=== PATIENT | male | born 2000 | race African-American/Black ===

== ENCOUNTER 2021-03-17 05:23 | Emergency (ER) | payer SELFPAY ==
[~2021-03-17] VITALS: Ht 160 cm; Wt 65.8 kg
--- NOTE | 2021-03-17 05:48 | NUR ---
PATIENT BIBSELF C/O THROAT PAIN WHEN SWALLOWING THAT STARTED YESTERDAY IN THE AM.
[2021-03-17] MEDS ORDERED: KETOROLAC TROMETHAMINE INJ 30 MG/ML VIAL IM ONE (06:30)
[2021-03-17] MEDS ORDERED: AMOXICILLIN TRIHYDRATE 500 MG CAPSULE PO ONE (06:30)
[2021-03-17] MEDS ORDERED: DEXAMETHASONE SOD PHOSPHATE 4 MG/ML VIAL IM ONE (06:30)
[2021-03-17] MEDS ORDERED: KETOROLAC TROMETHAMINE 15 MG/ML VIAL ONE (06:46)
[2021-03-17] MEDS ORDERED: AMOXICILLIN TRIHYDRATE 250 MG CAPSULE ONE (06:46)
[2021-03-17] MEDS ORDERED: DEXAMETHASONE SOD PHOSPHATE 10 MG/ML VIAL ONE (06:46)
[2021-03-17] MEDS ORDERED: IV NS 0.9% 500 ML BAG IV ONE (08:00)
--- NOTE | 2021-03-17 08:00 | NUR ---
[facility] ESTABLISHED, BLOOD DRAWN AND PICKED UP BY LAB
[2021-03-17 08:23] LABS: CALCIUM, SERUM 8.9 mg/dL (8.5-10.1); POTASSIUM 4.3 mmol/L (3.5-5.1)
[2021-03-17 08:26] LABS: BASOPHILS % (AUTO) 0.3 % (0.0-2.0); EOSINOPHILS % (AUTO) 1.6 % (0.0-6.0); HEMATOCRIT 41 % (39-51); HEMOGLOBIN 13.5 g/dL (13.5-17.5); LYMPHOCYTES # (AUTO) 1.6 K/uL (0.8-4.8); MEAN CORPUSCULAR HGB CONC 33 g/dl (31.0-36.0); MEAN CORPUSCULAR VOLUME 88 fL (80-96); MONOCYTES # (AUTO) 0.8 K/uL (0.1-1.30); MONOCYTES % (AUTO) 5.9 % (2.0-12.0); NEUTROPHILS # (AUTO) 11.5 K/uL (1.8-8.9); NEUTROPHILS % (AUTO) 81.2 % (43.0-81.0); PLATELET COUNT (AUTO) 173 K/uL (150-450); RED BLOOD CELL COUNT(AUTO) 4.66 MIL/uL (4.5-6.0); WHITE BLOOD COUNT (AUTO) 14.2 K/uL (4.3-11.0)
[2021-03-17] MEDS ORDERED: IOHEXOL-300 100 ML VIAL IV ONE (08:43)
[2021-03-17] MEDS ORDERED: IV NS 0.9% 250 ML IV ONE (08:43)
--- NOTE | 2021-03-17 08:52 | NUR ---
TAKEN TO CT
[2021-03-17] MEDS ORDERED: RACEPINEPHRINE HCL 2.25% NEB 0.5 ML VIAL.NEB IH ONE ×2 (09:25→09:30)
--- NOTE | 2021-03-17 09:28 | NUR ---
CALLED [facility] [phone] [place] CURRENTLY AT [facility]. DECLINING THE TRANSFER AT THIS TIME.
[2021-03-17] MEDS ORDERED: CEFTRIAXONE 2 G in IV D5W 100 ML IV SCH (09:30)
[2021-03-17] MEDS ORDERED: DEXAMETHASONE SOD PHOSPHATE 4 MG in IV D5W 50 ML IV ONE (09:30)
[2021-03-17] MEDS ORDERED: IV NS 0.9% 1,000 ML BAG IV ONE (09:30)
--- NOTE | 2021-03-17 09:31 | NUR ---
CALLED DR. BEVERLY ANESTHESIOLOGIST [phone] SINGH.
--- NOTE | 2021-03-17 09:34 | NUR ---
CALLED [facility] [phone] [place]. CURRENTLY AT CAPACITY AND ARE NOT ABLE TO HAVE ANY MORE PATIENTS. TRY BACK IN A FEW HOURS.
--- NOTE | 2021-03-17 09:41 | NUR ---
CALLED HOSPITALIST OF [facility]. WILL BE PAGED.
[2021-03-17] MEDS ORDERED: DEXAMETHASONE SOD PHOSPHATE 4 MG/ML VIAL ONE (09:52)
[2021-03-17] MEDS ORDERED: DEXAMETHASONE SOD PHOSPHATE 4 MG/ML VIAL IV ONE (10:00)
--- NOTE | 2021-03-17 10:10 | NUR ---
CALLED [facility] [phone] FAX# [phone]
--- NOTE | 2021-03-17 11:44 | NUR ---
HOSPITALIST FROM [facility] KATIUSKA ZIMMERMAN SPEAKING WITH DR. SINGH.
[2021-03-17] MEDS ORDERED: PRED50TA PO (12:50)
[2021-03-17] MEDS ORDERED: EPIN0.3P3 IJ (12:50)
--- NOTE | 2021-03-17 13:03 | NUR ---
IV removed. Catheter intact and site benign. Pressure and 4x4 applied to site. No bleeding noted.Patient discharged to home in stable condition. Written and verbal after care instructions given. Patient verbalizes understanding of instruction.
--- NOTE | 2021-03-17 13:04 | NUR ---
LEFT AGAINST MEDICAL ADVICE, AWARE, AMA FORM SIGNED
[2021-03-17 13:05] VITALS: BP 116/79
[2021-03-18 09:06] LABS: COMPLEMENT C3, SERUM 115 mg/dL (82-167); COMPLEMENT C4, SERUM 11 mg/dL (12-38)
== END 2021-03-17 13:05 | disposition home or self-care (01) ==
LOC: ER 05:27
DX: T78.3XXA Angioneurotic edema, initial encounter (principal); J05.10 Acute epiglottitis without obstruction; Z60.2 Problems related to living alone; Z79.899 Other long term (current) drug therapy
CPT/HCPCS: 36415; 70491; 80048; 83605; 85025; 85652; 86140; 86160; 87040 ×2; 87070; 87880; 94640; 96365; 96372 ×2; 96375; 99285; J0696; J1100 ×2; J1885; J7030; J7040; J7050; J7060; Q9967; 86403-TC